=== PATIENT | female | born 1975 | race African-American/Black ===

== ENCOUNTER 2016-08-15 11:28 | Emergency (ER) | payer SELFPAY ==
[~2016-08-15] VITALS: Ht 167.6 cm; Wt 100.0 kg
[~2016-08-15 11:28] MED LIST: ALBU8I INH; AMBI5TAB PO; DEPA125T PO; LISI2.5T55 PO; PRED20 PO
[2016-08-15 11:37] VITALS: BP 139/98; PULSE 87; RESP 16; TEMP 98.6; O2SAT 100
[2016-08-15 12:56] VITALS: BP 164/94; PULSE 77; RESP 18; O2SAT 98
[2016-08-15] MEDS ORDERED: DEPA125T PO (13:04)
[2016-08-15] MEDS ORDERED: FLUTI44I INH (13:04)
[2016-08-15] MEDS ORDERED: LISI2.5T3 PO (13:04)
[2016-08-15] MEDS ORDERED: ALBUAER3 INH (13:04)
[2016-08-15] MEDS ORDERED: AMBI5TAB PO (13:04)
[2016-08-15] MEDS ORDERED: ALPR0.25 PO (13:04)
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
[2016-08-15] MEDS ORDERED: SODIUM CHLORIDE 0.9% FLUSH 5 ML FLUSH IVF PRN (14:00)
[2016-08-15 14:04] VITALS: O2SAT 99
[2016-08-15 14:18] LABS: AUTOMATED NEUTROPHIL # 3.7 TH/MM3 (1.8-7.7); BASOPHIL % 0.3 % (0.0-2.0); EOSINOPHIL # 0.1 TH/MM3 (0-0.4); EOSINOPHIL % 0.9 % (0.0-4.0); HEMATOCRIT 33.2 % (35.0-46.0); LYMPH % 34.8 % (9.0-44.0); LYMPHOCYTE # 2.2 TH/MM3 (1.0-4.8); MEAN CELL VOLUME 71.4 FL (80.0-100.0); MEAN CORPUSCULAR HEMOGLOBIN 22.9 PG (27.0-34.0); MEAN CORPUSCULAR HGB CONC 32.1 % (32.0-36.0); MONO % 6.5 % (0.0-8.0); NEUT % 57.5 % (16.0-70.0); PLATELET COUNT 251 TH/MM3 (150-450); RED BLOOD COUNT 4.65 MIL/MM3 (4.00-5.30); RED CELL DISTRIBUTION WIDTH 19.3 % (11.6-17.2); WHITE BLOOD COUNT 6.4 TH/MM3 (4.0-11.0)
[2016-08-15 14:20] LABS: HEMO FLAGS AUTO DIFF
--- NOTE | 2016-08-15 14:20 | RADHPO ---
EXAM DATE/TIME: 08/15/2016 14:00 [facility] COMPARISON: No previous studies available for comparison. INDICATIONS : Chest pains for 2 weeks MEDICAL HISTORY : None. SURGICAL HISTORY : None. ENCOUNTER: Initial ACUITY: 2 months PAIN SCORE: 8/10 LOCATION: Bilateral chest FINDINGS: Portable AP view of the chest demonstrates a normal-sized cardiac silhouette. No effusion, consolidat ion, or pneumothorax is visualized. The bones and soft tissues demonstrate no acute abnormality. CONCLUSION: No acute cardiopulmonary abnormality is identified. Alonzo Krishnamurthy MD on August 15, 2016 at 14:18 Board Certified Radiologist. This report was verified electronically.
[2016-08-15 14:25] VITALS: BP_SYST 156; BP_SYST 170; BP_DIAS 104; BP_DIAS 95; PULSE 85; RESP 18; O2SAT 100
[2016-08-15 14:25] LABS: CHLORIDE 107 MEQ/L (98-107); POTASSIUM 3.9 MEQ/L (3.5-5.1); SODIUM (NA) 142 MEQ/L (136-145)
[2016-08-15 14:29] LABS: ANION GAP 7 MEQ/L (5-15); BICARBONATE 27.6 MEQ/L (21.0-32.0); BLOOD UREA NITROGEN 14 MG/DL (7-18)
[2016-08-15 14:32] LABS: ALT (GPT) 15 U/L (10-53); AST (GOT) 7 U/L (15-37); GLOMERULAR FILTRATION RATE 105 ML/MIN (>89)
[2016-08-15 14:33] LABS: TOTAL BILIRUBIN ADULT 0.7 MG/DL (0.2-1.0)
[2016-08-15 14:35] LABS: ALKALINE PHOSPHATASE 49 U/L (45-117); SCAN/DIFF AUTO DIFF CONFIRMED
--- NOTE | 2016-08-17 21:40 | EKG ---
Date Performed: 08/15/2016 Time Performed: 12:01:38 PTAGE: 40 years EKG: Sinus rhythm Inferior T wave changes are nonspecific Borderline ECG PREVIOUS TRACING : 03/06/2016 11.47 Compared to prior tracing no significant change DOCTOR: Karan Gagnon Interpretating Date/Time 08/17/2016 21:39:42
== END 2016-08-15 15:13 | disposition home or self-care (01) ==
LOC: PHED 11:28
DX: R07.9 Chest pain, unspecified (principal); I10 Essential (primary) hypertension; J45.909 Unspecified asthma, uncomplicated; F41.9 Anxiety disorder, unspecified
CPT/HCPCS: 71010; 80053; 84484; 85025; 93005

== ENCOUNTER 2017-08-06 08:47 | Emergency (ER) | payer OTHER ==
[~2017-08-06] VITALS: Ht 167.6 cm; Wt 100.9 kg
[~2017-08-06 08:47] MED LIST changes: -ALBU8I INH; +ALBUAER3 INH; +ALPR0.25 PO; +FLUTI44I INH; +LISI2.5T3 PO; -LISI2.5T55 PO; -PRED20 PO
[2017-08-06 09:05] VITALS: BP 179/110; PULSE 99; RESP 17; TEMP 98.9; O2SAT 99
[2017-08-06] MEDS ORDERED: ALBUAER3 INH (10:18)
[2017-08-06] MEDS ORDERED: DOXY100C PO (10:18)
[2017-08-06] MEDS ORDERED: BENZ100 PO (10:18)
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
== END 2017-08-06 10:30 | disposition home or self-care (01) ==
LOC: PHEFT 08:47
DX: J40 Bronchitis, not specified as acute or chronic (principal); R50.9 Fever, unspecified; I10 Essential (primary) hypertension; F41.9 Anxiety disorder, unspecified; J45.909 Unspecified asthma, uncomplicated; Z87.39 Personal history of other diseases of the musculoskeletal system and connective tissue; Z86.69 Personal history of other diseases of the nervous system and sense organs
CPT/HCPCS: 87804; 99284

== ENCOUNTER 2017-12-02 15:46 | Emergency (ER) | payer SELFPAY ==
[~2017-12-02] VITALS: Ht 167.6 cm; Wt 101.0 kg
[~2017-12-02 15:46] MED LIST changes: +BENZ100 PO; +DOXY100C PO
[2017-12-02 15:53] VITALS: BP 177/84; PULSE 87; RESP 18; TEMP 98.1; O2SAT 100
[2017-12-02] MEDS ORDERED: VENTAER INH (16:12)
[2017-12-02] MEDS ORDERED: LISI10TA3 PO ×2 (16:12→16:40)
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
[2017-12-02] MEDS ORDERED: cloNIDine HCL 0.1 MG TAB PO ONE (16:15)
[2017-12-02] MEDS ORDERED: AMBI10TA PO (16:47)
[2017-12-02 17:22] VITALS: BP 127/75
--- NOTE | 2017-12-02 17:43 | RADRPT ---
EXAM DATE/TIME: 12/02/2017 17:20 [facility] COMPARISON: No previous studies available for comparison. INDICATIONS : Cephalgia. RADIATION DOSE: 52.54 CTDIvol (mGy) MEDICAL HISTORY : Cardiovascular disease. Hypertension. SURGICAL HISTORY : Tubal ligation. ENCOUNTER: Initial ACUITY: 1 day PAIN SCALE: 8/10 LOCATION: cranial TECHNIQUE: Multiple contiguous axial images were obtained of the head. Using automated exposure control and adj ustment of the mA and/or kV according to patient size, radiation dose was kept as low as reasonably a chievable to obtain optimal diagnostic quality images. DICOM format image data is available electro nically for review and comparison. FINDINGS: CEREBRUM: The ventricles are normal for age. No evidence of midline shift, mass lesion, hemorrhage or acute in farction. No extra-axial fluid collections are seen. POSTERIOR FOSSA: The cerebellum and brainstem are intact. The 4th ventricle is midline. The cerebellopontine angle i s unremarkable. EXTRACRANIAL: The visualized portion of the orbits is intact. SKULL: The calvaria is intact. No evidence of skull fracture. CONCLUSION: 1. No acute intracranial abnormalities. Kt Bartlett MD on December 02, 2017 at 17:40 Board Certified Radiologist. This report was verified electronically.
[2017-12-02 17:55] VITALS: BP 129/76; PULSE 77; RESP 16; O2SAT 99
== END 2017-12-02 18:13 | disposition home or self-care (01) ==
LOC: PHED 15:46
DX: I10 Essential (primary) hypertension (principal); J45.909 Unspecified asthma, uncomplicated; F41.9 Anxiety disorder, unspecified; Z79.51 Long term (current) use of inhaled steroids; Z79.899 Other long term (current) drug therapy; Z88.2 Allergy status to sulfonamides
CPT/HCPCS: 70450; 99283